=== PATIENT | female | born 1950 | race Caucasian/White ===

== ENCOUNTER 2020-04-25 09:20 | Outpatient (REF) | payer MEDICARE, BC, SELFPAY ==
--- NOTE | 2020-04-25 09:29 | XR_ITS ---
EXAMINATION: XR CHEST CLINICAL INFORMATION: Shortness of breath. COMPARISON: None TECHNIQUE: 2 views of the chest were obtained. FINDINGS: Mild patchy increased interstitial markings are seen bilaterally. The heart and mediastinal structures are unremarkable. XR/XR chest 2V IMPRESSION: Mild patchy increased interstitial markings bilaterally are nonspecific. While this could be cardiogenic, the cardiomediastinal silhouette is unremarkable. An infectious/inflammatory process cannot be excluded. Correlate clinically.
== END 2020-04-25 09:21 | disposition home or self-care (01) ==
LOC: HO.HMGCX 09:20
PROVIDERS: PCP Internal Medicine; Visit Provider Internal Medicine
DX: R06.02 Shortness of breath (principal); Z20.828 Contact with and (suspected) exposure to other viral communicable diseases
CPT/HCPCS: 71046; U0003